=== PATIENT | female | born 1970 | race Caucasian/White ===

== ENCOUNTER → 2021-11-03 | Outpatient (CLI) | payer OTHER ==
--- NOTE | 2021-11-04 09:34 | RAD ---
EXAMINATION: CT ABDOMEN+PELVIS WO CLINICAL HISTORY: Hematuria TECHNIQUE: Imaging of the abdomen and pelvis was performed without intravenous contrast using standar d technique, scanning from just above the dome of the diaphragm to the symphysis pubis. Unenhanced i maging is limited for the evaluation of some intra-abdominal and pelvic pathology. CT Dose Reduction Employed: One or more of the following individualized dose reduction techniques wer e utilized for this examination: 1. Automated exposure control 2. Adjustment of the mA and/or kV ac cording to patient size 3. Use of iterative reconstruction technique. COMPARISON: None FINDINGS: Minimal bibasilar subsegmental atelectasis and/or scarring. Multiple large peripherally calcified gallstones. Liver, pancreas, spleen, and adrenal glands unremar kable. Unenhanced kidneys unremarkable. No urolithiasis or evidence of obstructive uropathy. Nondiagnostic evaluation of the nondistended urinary bladder. Uterus and ovaries within normal limits for patient's age. No dilated bowel. Appendix within normal limits. No abdominal aortic or iliac artery aneurysm. Multilevel thoracolumbar degenerative changes. IMPRESSION: No evidence of acute abdominopelvic abnormality. No urolithiasis or evidence of obstructive uropathy. Cholelithiasis without evidence of acute cholecystitis on limited CT evaluation. Electronically signed by: Barry Bellamy DO (11/04/2021 9:31 AM) JUDIT
== END ==
LOC: CT 15:39
PROVIDERS: ATTEND Nurse Practitioner Family
DX: K80.20 Calculus of gallbladder without cholecystitis without obstruction (principal); M47.815 Spondylosis without myelopathy or radiculopathy, thoracolumbar region
CPT/HCPCS: 74176